=== PATIENT | male | born 1945 | race Caucasian/White ===

== ENCOUNTER 2017-05-10 11:10 | Emergency (ER) | payer MEDICARE, BC ==
[2017-05-10] MEDS ORDERED: Diphtheria,Pertussis(Acell),Tetanus Vaccine 0.5 ML SDV IM ONE (11:30)
[2017-05-10] MEDS ORDERED: Bacitracin Oint 1 GM U/D Packet TOP ONE (11:30)
[2017-05-10] MEDS ORDERED: Lidocaine 1% 30 ML SDV INJECT ONE (11:30)
[2017-05-10 11:33] VITALS: BP 151/74
--- NOTE | 2017-05-10 11:54 | EDM.PDOC ---
ED HPI GENERAL MEDICAL PROBLEM - General Chief Complaint: Upper Extremity Injury/Pain Stated Complaint: [id number] CUT HAND Time Seen by Provider: 05/10/17 11:40 Source of Information: Reports: Patient History Limitations: Reports: No Limitations - History of Present Illness INITIAL COMMENTS - FREE TEXT/NARRATIVE: This 71 yo male patient reports to the ED with a laceration to his left proximal thumb. The patient reports he was "tinkering" in the garage removing tape from an object when the blade slipped and cut his hand. The patient attempted to stop the bleeding several times, but with continued bleeding the patient came to the ED. Onset: Today Duration: Hour(s):, Constant Location: Reports: Upper Extremity, Left Quality: Reports: Ache, Dull Severity: Mild Improves with: Reports: None Worsens with: Reports: Medication Context: Reports: Activity Associated Symptoms: Reports: No Other Symptoms - Related Data Allergies Allergy/AdvReac Type Severity Reaction Status Date / Time hydrochlorothiazide Allergy Cannot Verified 05/10/17 11:18 Remember Home Meds: Home Meds Aspirin 81 mg PO BRK 05/10/17 [History] Atenolol 50 mg PO DAILY 05/10/17 [History] Lisinopril 10 mg PO DAILY 05/10/17 [History] atorvaSTATin [Lipitor] 20 mg PO BEDTIME 05/10/17 [History] Past Medical History Cardiovascular History: Reports: High Cholesterol, Hypertension Social & Family History - Family History Family Medical History: Noncontributory - Tobacco Use Smoking Status *Q: Former Smoker Years of Tobacco use: 50 Used Tobacco, but Quit: Yes Month Tobacco Last Used: november 2014 - Caffeine Use Caffeine Use: Reports: Coffee - Recreational Drug Use Recreational Drug Use: No Review of Systems - Review of Systems Review Of Systems: ROS reveals no pertinent complaints other than HPI. ED EXAM, GENERAL - Physical Exam Exam: See Below Exam Limited By: No Limitations General Appearance: Alert, WD/WN, No Apparent Distress Eye Exam: Bilateral Eye: EOMI, Normal Inspection, PERRL Ears: Normal External Exam, Normal Canal, Hearing Grossly Normal, Normal TMs Nose: Normal Inspection, Normal Mucosa, No Blood Throat/Mouth: Normal Inspection, Normal Lips, Normal Teeth, Normal Gums, Normal Oropharynx, Normal Voice, No Airway Compromise Head: Atraumatic, Normocephalic Neck: Normal Inspection, Supple, Non-Tender, Full Range of Motion Respiratory/Chest: No Respiratory Distress, Lungs Clear, Normal Breath Sounds, No Accessory Muscle Use, Chest Non-Tender Cardiovascular: Normal Peripheral Pulses, Regular Rate, Rhythm, No Edema, No Gallop, No JVD, No Murmur, No Rub GI/Abdominal: Normal Bowel Sounds, Soft, Non-Tender, No Organomegaly, No Distention, No Abnormal Bruit, No Mass (Male) Exam: Deferred Rectal (Males) Exam: Deferred Back Exam: Normal Inspection, Full Range of Motion, NT Extremities: Normal Range of Motion, Non-Tender, No Pedal Edema, Normal Capillary Refill Neurological: Alert, Oriented, CN II-XII Intact, Normal Cognition, Normal Gait, Normal Reflexes, No Motor/Sensory Deficits Psychiatric: Normal Affect, Normal Mood Skin Exam: Warm, Dry, Normal Color, No Rash Lymphatic: No Adenopathy ED TRAUMA EXTREMITY PROCEDURES - Laceration/Wound Repair Left Hand Lac/Wound Length In cm: 1.5 Appearance: Subcutaneous Distal NVT: Neuro & Vascular Intact Anesthetic Type: Local Local Anesthesia - Lidocaine (Xylocaine): 1% Plain Local Anesthetic Volume: 2cc Skin Prep: Chlorhexidine (Hibiciens) Exploration/Debridement/Repair: Wound Explored, In a Bloodless Field, Explored to Base, Foreign Material Removed Closed With: Sutures Suture Size: 4-0 # of Sutures: 6 Suture Type: Prolene, Interrupted, Simple Drain Placement: No Sterile Dressing Applied: Nurse Tetanus Status Addressed: Yes Complications: No Course - Vital Signs Last Recorded V/S: Last Vital Signs Temp 37 C 05/10/17 11:30 Pulse 55 L 05/10/17 11:30 Resp 12 05/10/17 11:30 BP 151/74 H 05/10/17 11:30 Pulse Ox 97 05/10/17 11:30 - Orders/Labs/Meds Orders: Active Orders 24 hr Category Date Time Status Vaccines to be Administered [RC] PER UNIT ROUTINE Care 05/10/17 11:31 Ordered Meds: Medications Discontinued Medications Generic Name Dose Route Start Last Admin Trade Name Freq PRN Reason Stop Dose Admin Bacitracin 1 dose 05/10/17 11:30 05/10/17 11:53 Bacitracin Oint 1 Gm TOP 05/10/17 11:31 1 dose ONETIME ONE Administration Diphtheria/Tetanus/Acell Pertussis 0.5 ml 05/10/17 11:30 05/10/17 11:51 Adacel IM 05/10/17 11:31 0.5 ml .ONCE ONE Administration Lidocaine HCl 30 ml 05/10/17 11:30 05/10/17 11:53 Xylocaine-Mpf 1% INJECT 05/10/17 11:31 3 ml ONETIME ONE Administration Departure - Departure Time of Disposition: 11:50 Disposition: Home, Self-Care 01 Condition: Fair Clinical Impression: Laceration of left hand Qualifiers: Encounter type: initial encounter Foreign body presence: with foreign body Qualified Code(s): S61.422A - Laceration with foreign body of left hand, initial encounter - Discharge Information Instructions: Laceration Care, Adult, [id number] Forms: ED Department Discharge Care Plan Goals: The patient was advised of the examination results during the visit. The patient 's laceration margins were well approximated during the visit. The patient should keep the area clean and dry for the next 24 hours. The sutures should be removed in 10-14 days. If the patient has any additional symptoms or concerns, the patient should follow-up with his primary care facility or return to the emergency department. - My Orders Last 24 Hours: My Active Orders 05/10/17 11:31 Vaccines to be Administered [RC] PER UNIT ROUTINE - Assessment/Plan Last 24 Hours: My Active Orders 05/10/17 11:31 Vaccines to be Administered [RC] PER UNIT ROUTINE
== END 2017-05-10 12:00 | disposition home or self-care (01) ==
LOC: DL.ED 11:10
DX: S61.422A Laceration with foreign body of left hand, initial encounter (principal); I10 Essential (primary) hypertension; E78.00 Pure hypercholesterolemia, unspecified; Z79.899 Other long term (current) drug therapy; Z88.8 Allergy status to other drugs, medicaments and biological substances; Z23 Encounter for immunization; Z87.891 Personal history of nicotine dependence; W45.8XXA Other foreign body or object entering through skin, initial encounter
CPT/HCPCS: 12001; 90471; 90715; 99283

== ENCOUNTER 2019-01-30 04:58 | Emergency (ER) | payer MEDICARE, BC ==
[2019-01-30 05:06] VITALS: BP 178/84
--- NOTE | 2019-01-30 05:10 | EDM.PDOC ---
ED HPI GENERAL MEDICAL PROBLEM - General Chief Complaint: Neuro Symptoms/Deficits Stated Complaint: STROKE? [id number] Time Seen by Provider: 01/30/19 05:03 Source of Information: Reports: Patient History Limitations: Reports: No Limitations - History of Present Illness INITIAL COMMENTS - FREE TEXT/NARRATIVE: ambulatory, with c/o waking and left arm "not working" and stumbling. Last up around midnight and fine. No change in upper extremity symptoms since first noticing. Difficulty walking has resolved, Hx hypertension. No prior cardiac or neuro sx. Denied head ache, no blurring of vision, No nausea. Stated had gotten up early to go fishing. Checked BP and "bottom # elevated to 103. usually runs 70's. - Related Data Allergies Allergy/AdvReac Type Severity Reaction Status Date / Time hydrochlorothiazide Allergy Cannot Verified 01/30/19 05:34 Remember Home Meds: Home Meds Aspirin 81 mg PO BRK 05/10/17 [History] Atenolol 50 mg PO BID 05/10/17 [History] Lisinopril 20 mg PO DAILY 05/10/17 [History] atorvaSTATin [Lipitor] 20 mg PO BEDTIME 05/10/17 [History] Past Medical History Cardiovascular History: Reports: High Cholesterol, Hypertension Social & Family History - Family History Family Medical History: Noncontributory - Caffeine Use Caffeine Use: Reports: Coffee ED ROS GENERAL - Review of Systems Review Of Systems: See Below HEENT: Reports: No Symptoms Respiratory: Reports: No Symptoms Cardiovascular: Reports: No Symptoms GI/Abdominal: Reports: No Symptoms Musculoskeletal: Reports: No Symptoms Skin: Reports: No Symptoms Neurological: Reports: Difficulty Walking (resolved), Weakness. Denies: Dizziness, Headache, Numbness ED EXAM, NEURO - Physical Exam Exam: See Below Exam Limited By: No Limitations General Appearance: Alert, No Apparent Distress Eye Exam: Bilateral Eye: EOMI, PERRL (3mm) Ears: Normal External Exam, Normal TMs Nose: Normal Inspection Throat/Mouth: Normal Inspection Head Exam: Atraumatic, Normocephalic Neck: Normal Inspection, Full Range of Motion Respiratory/Chest: No Respiratory Distress, Lungs Clear, Normal Breath Sounds Cardiovascular: Normal Peripheral Pulses, Regular Rate, Rhythm, No Edema GI/Abdominal: Normal Bowel Sounds, Soft, Non-Tender Neurological: Alert, Normal Mood/Affect, Normal Dorsiflexion, CN II-XII Intact, Normal Plantar Flexion, Normal Gait, Oriented x 3, Ataxia (left arm), Abn 2 Pt Discrimination. No: Difficulty Walking Back Exam: Full Range of Motion Extremities: Normal Inspection Skin Exam: Warm, Dry, Intact Course - Vital Signs Last Recorded V/S: Last Vital Signs Temp 98.2 F 01/30/19 05:03 Pulse 62 01/30/19 05:03 Resp 18 01/30/19 05:03 BP 178/84 H 01/30/19 05:03 Pulse Ox 98 01/30/19 05:03 - Orders/Labs/Meds Orders: Active Orders 24 hr Category Date Time Status EKG Documentation Completion [RC] URGENT Care 01/30/19 05:05 Active POC Glucose [Blood Glucose Check, Bedside] [RC] ONETIME Care 01/30/19 05:27 Active Labs: Laboratory Tests 01/30/19 01/30/19 01/30/19 Range/Units 05:05 05:05 05:05 WBC 5.8 (5.0-10.0) 10^3/uL RBC 4.90 (4.6-6.2) 10^6/uL Hgb 15.0 (14.0-18.0) g/dL Hct 45.3 (40.0-54.0) % MCV 92.4 (80-100) fL MCH 30.6 (27.0-34.0) pg MCHC 33.1 (33.0-35.0) g/dL Plt Count 289 (150-450) 10^3/uL Neut % (Auto) 41.9 L (42.2-75.2) % Lymph % (Auto) 40.2 (20.5-50.1) % [place] % (Auto) 12.4 H (2-8) % Eos % (Auto) 4.5 H (1.0-3.0) % Baso % (Auto) 1.0 (0.0-1.0) % PT 10.7 (9.0-12.0) SEC INR 1.1 (0.9-1.2) APTT 27.2 (22.0-34.0) SEC Sodium 137 (135-145) mmol/L Potassium 3.8 (3.6-5.0) mmol/L Chloride 103 (101-111) mmol/L Carbon Dioxide 25.0 (21.0-31.0) mmol/L Anion Gap 12.8 BUN 12 (7-18) mg/dL Creatinine 0.8 (0.6-1.3) mg/dL Est Cr Clr Drug Dosing 84.97 mL/min Estimated GFR (MDRD) > 60 BUN/Creatinine Ratio 15.00 Glucose 100 (74-105) mg/dL POC Glucose (83-110) mg/dl Calcium 8.9 (8.4-10.2) mg/dl Magnesium 2.1 (1.8-2.5) mg/dL Total Bilirubin 1.0 (0.2-1.0) mg/dL AST 24 (10-42) IU/L ALT 16 (10-60) IU/L Alkaline Phosphatase 48 (42-121) IU/L Troponin I < 0.02 (0.00-0.02) ng/ml Total Protein 7.1 (6.7-8.2) g/dl Albumin 4.1 (3.2-5.5) g/dl Globulin 3.0 Albumin/Globulin Ratio 1.37 // Range/Units 05:05 WBC (5.0-10.0) 10^3/uL RBC (4.6-6.2) 10^6/uL Hgb (14.0-18.0) g/dL Hct (40.0-54.0) % MCV (80-100) fL MCH (27.0-34.0) pg MCHC (33.0-35.0) g/dL Plt Count (150-450) 10^3/uL Neut % (Auto) (42.2-75.2) % Lymph % (Auto) (20.5-50.1) % [place] % (Auto) (2-8) % Eos % (Auto) (1.0-3.0) % Baso % (Auto) (0.0-1.0) % PT (9.0-12.0) SEC INR (0.9-1.2) APTT (22.0-34.0) SEC Sodium (135-145) mmol/L Potassium (3.6-5.0) mmol/L Chloride (101-111) mmol/L Carbon Dioxide (21.0-31.0) mmol/L Anion Gap BUN (7-18) mg/dL Creatinine (0.6-1.3) mg/dL Est Cr Clr Drug Dosing mL/min Estimated GFR (MDRD) BUN/Creatinine Ratio Glucose (74-105) mg/dL POC Glucose 99 (83-110) mg/dl Calcium (8.4-10.2) mg/dl Magnesium (1.8-2.5) mg/dL Total Bilirubin (0.2-1.0) mg/dL AST (10-42) IU/L ALT (10-60) IU/L Alkaline Phosphatase (42-121) IU/L Troponin I (0.00-0.02) ng/ml Total Protein (6.7-8.2) g/dl Albumin (3.2-5.5) g/dl Globulin Albumin/Globulin Ratio - Radiology Interpretation Free Text/Narrative:: Name: JENNY BAY Age: 73Years M Date: 01/30/2019 SSN: -- : [id number] Study: CT HEAD WO Requesting Physician: CAITLYN NIEVES Images: 1 Addl Studies: Provided Clinical History: Contrast: Without Contrast Medium: Contrast Amount: Contrast Method: Page 1 of 2 EXAM: CT Head Without Contrast EXAM DATE/TIME: 01/30/2019 5:15 AM CLINICAL HISTORY: 73 years old, male; Signs and symptoms; Other: Left arm not working, arm uncoordinated, minimal weakness, las known well 5 hrs prior TECHNIQUE: Imaging protocol: Axial computed tomography images of the head without contrast. Coronal and sagittal reformatted images were created and reviewed. Radiation optimization: All CT scans at this facility use at least one of these dose optimization techniques: automated exposure control; mA and/or kV adjustment per patient size (includes targeted exams where dose is matched to clinical indication); or iterative reconstruction. Other technique: STROKE PROTOCOL was implemented. COMPARISON: No relevant prior studies available. FINDINGS: Brain: There is mild age-related parenchymal volume loss. There is no intracranial mass or hemorrhage. There is no evidence of territorial infarction. Ventricles: Normal. No ventriculomegaly. Bones/joints: Unremarkable. No acute fracture. Sinuses: Air-fluid levels are seen within the maxillary sinuses. There is partial opacification of ethmoid air cells. There is mucoperiosteal thickening within the sphenoid sinus. Mastoid air cells: Visualized mastoid air cells are well aerated. No mastoid effusion. Soft tissues: Unremarkable. JENNY BAY | Final Radiology Report CONFIDENTIALITY STATEMENT This report is intended only for use by the referring physician, and only in accordance with law. If you received this in error, call [phone]. Page 2 of 2 - Re-Assessments/Exams Free Text/Narrative Re-Assessment/Exam: 01/30/19 06:[address] Hollins, accepting of patient . Tx via [facility]. Patient VSS. Neuro minimal weakness to left arm , hand integrated marketing intern strong. finger nose coordination deficit. Departure - Departure Time of Disposition: 06:20 Disposition: DC/Tfer to Acute Hospital 02 Condition: Undetermined Clinical Impression: Weakness of hand - Discharge Information *PRESCRIPTION DRUG MONITORING PROGRAM REVIEWED*: No *COPY OF PRESCRIPTION DRUG MONITORING REPORT IN PATIENT LORELEI: No Referrals: PCP,None [Primary Care Provider] - Forms: ED Department Discharge - My Orders Last 24 Hours: My Active Orders 01/30/19 05:05 EKG Documentation Completion [RC] URGENT 01/30/19 05:27 POC Glucose [Blood Glucose Check, Bedside] [RC] ONETIME - Assessment/Plan Last 24 Hours: My Active Orders 01/30/19 05:05 EKG Documentation Completion [RC] URGENT 01/30/19 05:27 POC Glucose [Blood Glucose Check, Bedside] [RC] ONETIME
[2019-01-30 05:32] LABS: ANION GAP 12.8; CHLORIDE,CL 103 mmol/L (101-111); SODIUM,NA 137 mmol/L (135-145)
== END 2019-01-30 06:20 ==
LOC: DL.ED 04:58
DX: R53.1 Weakness (principal); I10 Essential (primary) hypertension; Z79.82 Long term (current) use of aspirin; Z79.899 Other long term (current) drug therapy; Z88.8 Allergy status to other drugs, medicaments and biological substances
CPT/HCPCS: 36415; 70450; 80053; 82962; 83735; 84484; 85025; 85610; 85730; 93005; 99285-25

== ENCOUNTER → 2022-09-08 | Day surgery (SDC) | payer MEDICARE, BC ==
[~2022-09-08] MED LIST: Acetaminophen 325 MG Tab PO PRN; Acetaminophen/Codeine 300-30 MG Tab PO PRN; Apraclonidine 0.5% Ophth Soln 5 ML Bot EYELF ONE; Balanced Salt Solution Ophth Irrig 500 ML Bottle IOCULAR ONE; Cataract Ophth Solution EYELF ONE; Chondroitin Sulfate/Hyaluronate Sodium Ophth Inj 0.75 ML Syringe EYELF ONE; Dexamethasone 4 MG/ML SDV IV ONE; Dexamethasone/Neomycin/Polymyxin B Ophth Oint 3.5 GM Tube EYELF ONE; Diclofenac Sodium 0.1% Ophth Soln 5 ML Bottle EYELF ONE; Lidocaine 1% 30 ML SDV ONE; Midazolam 1 MG/ML 2 ML SDV IV ONE; Moxifloxacin 0.5% Ophth Soln 3 ML Bottle EYELF ONE; Ondansetron 4 MG/2 ML SDV IVPUSH PRN; Phenylephrine 10% Ophth Soln 5 ML Bot EYELF PRN; Povidone-Iodine 5% Sterile Ophth Soln 30 ML Bottle EYELF ONE; Proparacaine 0.5% Ophth Soln 15 ML Bottle EYELF ONE; Sodium Chloride 0.9% 10 ML Syringe FLUSH PRN; Sodium Chloride 0.9% 10 ML Syringe IV ONE; Timolol Maleate 0.5% Ophth Soln 5 ML Bottle EYELF ONE; Tropicamide 1% Ophth Soln 15 ML Bottle EYELF ONE; Vancomycin 500 MG SDV EYELF ONE
[2022-09-08 11:59] VITALS: BP 140/70; PULSE 70
== END | disposition home or self-care (01) ==
LOC: DL.SDS 06:45
PROVIDERS: ATTEND Ophthalmology
DX: H25.812 Combined forms of age-related cataract, left eye (principal); I10 Essential (primary) hypertension; E78.5 Hyperlipidemia, unspecified; Z86.73 Personal history of transient ischemic attack (TIA), and cerebral infarction without residual deficits; Z88.2 Allergy status to sulfonamides; Z79.899 Other long term (current) drug therapy; Z90.49 Acquired absence of other specified parts of digestive tract; Z98.890 Other specified postprocedural states; Z87.891 Personal history of nicotine dependence
CPT/HCPCS: 00142; A9270-GY; J1100; J2250; J3370; J3490; V2632

== ENCOUNTER 2022-10-06 06:20 | Day surgery (SDC) | payer MEDICARE, BC ==
[~2022-10-06 06:20] MED LIST changes: -Acetaminophen 325 MG Tab PO PRN; -Acetaminophen/Codeine 300-30 MG Tab PO PRN; -Apraclonidine 0.5% Ophth Soln 5 ML Bot EYELF ONE; +Apraclonidine 0.5% Ophth Soln 5 ML Bot EYERT ONE; -Cataract Ophth Solution EYELF ONE; -Chondroitin Sulfate/Hyaluronate Sodium Ophth Inj 0.75 ML Syringe EYELF ONE; +Chondroitin Sulfate/Hyaluronate Sodium Ophth Inj 0.75 ML Syringe EYERT ONE; -Dexamethasone 4 MG/ML SDV IV ONE; -Dexamethasone/Neomycin/Polymyxin B Ophth Oint 3.5 GM Tube EYELF ONE; +Dexamethasone/Neomycin/Polymyxin B Ophth Oint 3.5 GM Tube EYERT ONE; -Diclofenac Sodium 0.1% Ophth Soln 5 ML Bottle EYELF ONE; +Diclofenac Sodium 0.1% Ophth Soln 5 ML Bottle EYERT ONE; -Midazolam 1 MG/ML 2 ML SDV IV ONE; -Moxifloxacin 0.5% Ophth Soln 3 ML Bottle EYELF ONE; -Ondansetron 4 MG/2 ML SDV IVPUSH PRN; -Phenylephrine 10% Ophth Soln 5 ML Bot EYELF PRN; -Povidone-Iodine 5% Sterile Ophth Soln 30 ML Bottle EYELF ONE; +Povidone-Iodine 5% Sterile Ophth Soln 30 ML Bottle EYERT ONE; -Proparacaine 0.5% Ophth Soln 15 ML Bottle EYELF ONE; +Proparacaine 0.5% Ophth Soln 15 ML Bottle EYERT ONE; +Proparacaine 0.5% Ophth Soln 15 ML Bottle ONE; -Sodium Chloride 0.9% 10 ML Syringe FLUSH PRN; -Sodium Chloride 0.9% 10 ML Syringe IV ONE; -Timolol Maleate 0.5% Ophth Soln 5 ML Bottle EYELF ONE; -Tropicamide 1% Ophth Soln 15 ML Bottle EYELF ONE; -Vancomycin 500 MG SDV EYELF ONE; +Vancomycin 500 MG SDV EYERT ONE
[2022-10-06] MEDS ORDERED: Midazolam 1 MG/ML 2 ML SDV IV ONE (06:21)
[2022-10-06] MEDS ORDERED: Sodium Chloride 0.9% 10 ML Syringe IV ONE (06:21)
[2022-10-06] MEDS ORDERED: Dexamethasone 4 MG/ML SDV IV ONE (06:21)
[2022-10-06] MEDS ORDERED: Povidone-Iodine 5% Sterile Ophth Soln 30 ML Bottle EYERT ONE ×2 (06:30→08:41)
[2022-10-06] MEDS ORDERED: Tropicamide 1% Ophth Soln 15 ML Bottle EYERT ONE (06:30)
[2022-10-06] MEDS ORDERED: Phenylephrine 10% Ophth Soln 5 ML Bot EYERT PRN (06:30)
[2022-10-06] MEDS ORDERED: Acetaminophen/Codeine 300-30 MG Tab PO PRN (06:30)
[2022-10-06] MEDS ORDERED: Acetaminophen 325 MG Tab PO PRN (06:30)
[2022-10-06] MEDS ORDERED: Ondansetron 4 MG/2 ML SDV IVPUSH PRN (06:30)
[2022-10-06] MEDS ORDERED: Timolol Maleate 0.5% Ophth Soln 5 ML Bottle EYERT ONE (06:30)
[2022-10-06] MEDS ORDERED: Cataract Ophth Solution EYERT ONE (06:30)
[2022-10-06] MEDS ORDERED: Sodium Chloride 0.9% 10 ML Syringe FLUSH PRN (06:30)
[2022-10-06] MEDS ORDERED: Proparacaine 0.5% Ophth Soln 15 ML Bottle EYERT ONE ×2 (06:30→08:41)
[2022-10-06] MEDS ORDERED: Moxifloxacin 0.5% Ophth Soln 3 ML Bottle EYERT ONE (06:30)
[2022-10-06] MEDS ORDERED: Apraclonidine 0.5% Ophth Soln 5 ML Bot EYERT ONE (08:41)
[2022-10-06] MEDS ORDERED: Dexamethasone/Neomycin/Polymyxin B Ophth Oint 3.5 GM Tube EYERT ONE (08:42)
[2022-10-06] MEDS ORDERED: Lidocaine 1% 30 ML SDV ONE (08:42)
[2022-10-06] MEDS ORDERED: Diclofenac Sodium 0.1% Ophth Soln 5 ML Bottle EYERT ONE (08:42)
[2022-10-06] MEDS ORDERED: Balanced Salt Solution Ophth Irrig 500 ML Bottle IOCULAR ONE (08:42)
[2022-10-06] MEDS ORDERED: Vancomycin 500 MG SDV EYERT ONE (08:42)
[2022-10-06] MEDS ORDERED: Chondroitin Sulfate/Hyaluronate Sodium Ophth Inj 0.75 ML Syringe EYERT ONE (08:42)
[2022-10-06 09:22] VITALS: BP 154/75; PULSE 74
== END 2022-10-06 09:25 | disposition home or self-care (01) ==
LOC: DL.SDS 06:20
PROVIDERS: ATTEND Ophthalmology
DX: H25.811 Combined forms of age-related cataract, right eye (principal); I10 Essential (primary) hypertension; E78.5 Hyperlipidemia, unspecified; G45.9 Transient cerebral ischemic attack, unspecified; Z88.2 Allergy status to sulfonamides; Z79.899 Other long term (current) drug therapy; Z87.891 Personal history of nicotine dependence; Z90.49 Acquired absence of other specified parts of digestive tract; Z98.890 Other specified postprocedural states
CPT/HCPCS: 00142; A9270-GY; J1100; J2250; J3370; J3490